=== PATIENT | female | born 1985 ===

== ENCOUNTER → 2018-07-25 19:00 | Outpatient (REF) | payer OTHER, MEDICAID, SELFPAY ==
[2018-07-25 19:40] LABS: Hemoglobin 11.9 g/dL (12.0-16.0)
[2018-07-25 20:02] LABS: HEMOLYSIS 28 (0-50); Iron 76 ug/dL (37-170)
[2018-07-25 20:12] LABS: Percent Iron Saturation 30 % (15-50); Total Iron Binding Capacity 252 ug/dL (265-497); Transferrin 200 mg/dL (206-381)
[2018-07-25 20:22] LABS: Free T3, Triiodothyronine Free 4.26 pg/mL (2.77-5.27)
[2018-07-25 20:42] LABS: Ferritin 30.7 ng/mL (6.27-137)
[2018-07-31 18:53] LABS: Triiodothyronine T3 Reverse 15 ng/dL (8-25)
== END ==
LOC: LAB 19:00
PROVIDERS: Visit Provider Naturopath
DX: D57.3 Sickle-cell trait (principal); D50.9 Iron deficiency anemia, unspecified
CPT/HCPCS: 36415; 82728; 83540; 83550; 84436; 84481; 84482; 85014; 85018

== ENCOUNTER → 2018-08-29 18:51 | Outpatient (REF) | payer OTHER, MEDICAID, SELFPAY ==
[2018-08-29 19:34] LABS: Add Manual Diff / Slide Review NO; Basophils Percent Auto 0.5 % (0-2); Eosinophils Percent Auto 2.3 % (2-4); Hematocrit 36.3 % (36-46); Hemoglobin 12.2 g/dL (12.0-16.0); Lymphocytes Percent Auto 37.9 % (25-40); Mean Corpuscular HGB Conc 33.6 % (30-36); Mean Corpuscular Hemoglobin 27.3 PG (26-34); Mean Corpuscular Volume 81.3 fL (80-100); Monocytes Percent Auto 5.4 % (3-14); Neutrophils Absolute Auto 3700 /uL (3000-5900); Neutrophils Percent Auto 53.9 % (50-75); Platelet Count 335 X10^3/uL (150-400); Red Blood Cell Count 4.47 X10^6/uL (4.0-5.2); Red Cell Distribution Width 13.7 % (11.6-14.8); White Blood Cell Count 6.8 X10^3/uL (4.5-11.0)
[2018-08-29 19:45] LABS: Alanine Aminotransferase 23 IU/L (9-52); Albumin 4.5 g/dL (3.5-5.0); Albumin Globulin Ratio 1.8 (1.0-2.8); Alkaline Phosphatase 49 U/L (38-126); Aspartate Aminotransferase 18 IU/L (14-36); Bilirubin Total 0.5 mg/dL (0.2-1.3); Blood Urea Nitrogen 9 mg/dL (7-17); Calcium 9.2 mg/dL (8.4-10.2); Carbon Dioxide 28 mmol/L (22-32); Chloride 103 mmol/L (98-107); Cholesterol 105 mg/dL (140-199); Estimated Glomerular Filt Rate > 60.0 mL/min (>60); Globulin 2.5 g/dL (1.7-4.1); Glucose 93 mg/dL (70-100); HDL Cholesterol 46 mg/dL (40-60); HEMOLYSIS < 15 (0-50); LDL Cholesterol Calculated 44 mg/dL (<100); Potassium 4.4 mmol/L (3.4-5.1); Sodium 144 mmol/L (137-145); Triglycerides 73 mg/dL (35-150)
[2018-08-29 20:15] LABS: Thyroid Stimulating Hormone 1.76 uIU/mL (0.47-4.68)
[2018-09-01 13:06] LABS: Immunoglobulin A 249 mg/dL (81-463)
== END ==
LOC: LAB 18:51
PROVIDERS: Visit Provider Naturopath
DX: L63.1 Alopecia universalis (principal); D50.9 Iron deficiency anemia, unspecified; D50.8 Other iron deficiency anemias; N91.1 Secondary amenorrhea; D57.3 Sickle-cell trait; R53.82 Chronic fatigue, unspecified; Z00.01 Encounter for general adult medical examination with abnormal findings
CPT/HCPCS: 80053; 80061; 82784; 83516; 84443; 85025